=== PATIENT | male | born 1960 | race Caucasian/White ===

== ENCOUNTER 2021-05-18 11:34 | Inpatient (IN) | payer OTHER ==
[~2021-05-18] VITALS: Ht 180.3 cm; Wt 91.6 kg
[2021-05-18 12:25] LABS: BASOPHILS % 0.3 % (0.0-2.0); EOSINOPHILS % 1.3 % (0.0-5.0); HEMATOCRIT. 45.2 % (42.0-52.0); HEMOGLOBIN. 15.1 g/dL (14.0-18.0); LYMPHOCYTES % 11.9 % (20.0-50.0); MEAN CORPUSCULAR HEMOGLOBIN 30.7 pg (28.0-32.0); MEAN CORPUSCULAR VOLUME 91.6 fL (80.0-94.0); MEAN PLATELET VOLUME 7.6 fl (7.4-10.4); MONOCYTES % 7.8 % (2.0-8.0); NEUTROPHILS % 78.7 % (40.0-76.0); PLATELET 288 x1000/uL (130-400); RED BLOOD CELL COUNT 4.94 mill/uL (4.7-6.1); RED CELL DISTRIBUTION WIDTH 13.4 % (11.6-14.6)
[2021-05-18 12:33] LABS: CHLORIDE 110 mEq/L (98-107)
[2021-05-18] MEDS ORDERED: ACETAMINOPHEN 325MG TABLET PO PRN (14:30)
[2021-05-18] MEDS ORDERED: ONDANSETRON HCL 4MG/2ML INJ IV PRN (14:30)
[2021-05-18 16:00] VITALS: BP 141/88
[2021-05-18] MEDS ORDERED: DILT300C52 PO (16:25)
[2021-05-18] MEDS ORDERED: LOSA25TA26 PO (16:28)
[2021-05-18] MEDS ORDERED: METF-416 PO (16:28)
[2021-05-18] MEDS ORDERED: ATOR-2 PO (16:28)
[2021-05-18] MEDS ORDERED: DILTIAZEM HCL 120MG CAPSULE CD 24HR PO SCH ×2 (18:00→20:00)
[2021-05-18] MEDS: LOSARTAN POTASSIUM 25 MG TABLET PO SCH (18:15)
[2021-05-18 20:00] VITALS: BP 115/68
[2021-05-18] MEDS ORDERED: ATORVASTATIN CALCIUM 40MG TABLET PO SCH (21:00)
[2021-05-18] MEDS ORDERED: MEDICATION NOT ON FORMULARY EA (Atorvastatin Calcium 80 MG) PO SCH (21:00)
[2021-05-19] VITALS: BP 103/60
[2021-05-19 04:00] VITALS: BP 116/60
[2021-05-19] MEDS ORDERED: METFORMIN HCL 500MG TABLET PO SCH (07:10)
[2021-05-19 08:00] VITALS: BP 163/76
[2021-05-19] MEDS: LOSARTAN POTASSIUM 25 MG TABLET PO SCH (08:55)
[2021-05-19] MEDS ORDERED: ASPIRIN 81MG TABLET PO SCH (09:00)
[2021-05-19 11:16] VITALS: BP 163/76
== END 2021-05-19 12:30 | disposition home or self-care (01) | DRG 74 ==
LOC: ER 11:34 → EDBEDREQTM 12:09 → EDBEDREQ 12:09 → 7EST 14:01 → EDBEDREQ 14:11 → EDBEDREQTM 14:11 → ENRESERV 14:28
PROVIDERS: ADMIT Internal Medicine; ATTEND Internal Medicine
DX: G90.8 Other disorders of autonomic nervous system (principal); E44.1 Mild protein-calorie malnutrition; I47.1 Supraventricular tachycardia; E11.9 Type 2 diabetes mellitus without complications; E87.8 Other disorders of electrolyte and fluid balance, not elsewhere classified; I10 Essential (primary) hypertension; E78.5 Hyperlipidemia, unspecified; Z82.49 Family history of ischemic heart disease and other diseases of the circulatory system; Z95.0 Presence of cardiac pacemaker; Z88.5 Allergy status to narcotic agent; Z88.0 Allergy status to penicillin; Z88.8 Allergy status to other drugs, medicaments and biological substances; Z68.28 Body mass index [BMI] 28.0-28.9, adult
CPT/HCPCS: 36415; 71045; 80053; 82962; 83735; 83880; 84443; 84484; 85025; 93005; 93306; 99291